=== PATIENT | male | born 1945 | race Caucasian/White ===

== ENCOUNTER 2016-10-11 09:15 | Outpatient (RCR) | payer MEDICARE | END 2016-12-06 | disposition home or self-care (01) | LOC: ONC 09:15 | PROVIDERS: ATTEND Radiology Radiation Oncology | DX: Z51.0 Encounter for antineoplastic radiation therapy (principal); C79.51 Secondary malignant neoplasm of bone; C79.89 Secondary malignant neoplasm of other specified sites; C64.9 Malignant neoplasm of unspecified kidney, except renal pelvis | CPT/HCPCS: 77290; 77295; 77332; 77334; 77336; 77385; 77417; 77470; 99214 ==